=== PATIENT | male | born 1970 | race Caucasian/White ===

== ENCOUNTER 2018-09-11 14:09 | Emergency (ER) | payer OTHER ==
[2018-09-11 14:22] VITALS: BP 159/101
--- NOTE | 2018-09-11 14:58 | EDPHY ---
H & P Stated Complaint: Possible hydrogen flouride exposure at work. Initially burning eyes. 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 There were no known leaks or exposures. He was wearing protective equipment and goggles. However after leaving the room he and his coworkers noticed some slight burning sensation to the eyes and there eyes looked slightly red. This sensation resolved after about a minute. They did go ahead and irrigate there are eyes with the safety station. They wash their hands and any exposed areas with calcium gluconate soap and drank milk and took Tums. This all happened about 5 hr ago. He now presents to the emergency department with two of his coworkers. He just wanted to make sure he was okay. He is currently asymptomatic. He does state that he has had a mild cold over last few days and so his voice is slightly changed and scratchy. He is worried that this will mask any symptoms of pleural edema. The safety officers did take a hydrogen fluoride sniffer into the room that resulted as negative however the room has been being ventilated since the left. Severity: Minimal Modifying factors: Resolved REVIEW OF SYSTEMS: Constitutional: denies: chills, fever, recent illness, recent injury EENTM: denies: blurred vision, double vision, nose congestion Respiratory: denies: cough, shortness of breath Cardiac: denies: chest pain, irregular heart rate, lightheadedness, palpitations Gastrointestinal/Abdominal: denies: abdominal pain, diarrhea, nausea, vomiting, blood streaked stools Genitourinary: denies: dysuria, frequency, hematuria, pain Musculoskeletal: denies: joint pain, muscle pain Skin: denies: lesions, rash, jaundice, bruising Neurological: denies: headache, numbness, paresthesia, tingling, dizziness, weakness Hematologic/Lymphatic: denies: blood clots, easy bleeding, easy bruising Immunologic/allergic: denies: HIV/AIDS, transplant 10 systems reviewed and negative except as noted EXAM: GENERAL: Well-appearing, well-nourished and in no acute distress. HEAD: Atraumatic, normocephalic. EYES: Pupils equal round and reactive to light, extraocular movements intact, sclera anicteric, conjunctiva are normal. PH checked and is between 7 and 8. ENT: TMs normal, nares patent, oropharynx clear without exudates. Moist mucous membranes. NECK: Normal range of motion, supple without lymphadenopathy or JVD. LUNGS: Breath sounds clear to auscultation bilaterally and equal. No wheezes rales or rhonchi. HEART: Regular rate and rhythm without murmurs, rubs or gallops. ABDOMEN: Soft, nontender, normoactive bowel sounds. No guarding, no rebound. No masses appreciated. BACK: No CVA tenderness, no spinal tenderness, step-offs or deformities EXTREMITIES: Normal range of motion, no pitting or edema. No clubbing or cyanosis. NEUROLOGICAL: Cranial nerves II through XII grossly intact. Normal speech, normal gait. 5/5 strength, normal movement in all extremities, normal sensation , normal reflexes PSYCH: Normal mood, normal affect. SKIN: Warm, dry, normal turgor, no visible rashes or lesions. Source: Patient Exam Limitations: No limitations - Personal History Current Tetanus/Diphtheria Vaccine: Unsure - Medical/Surgical History Hx Asthma: No Hx Chronic Respiratory Disease: No Hx Diabetes: No Hx Cardiac Disease: No Hx Renal Disease: No Hx Cirrhosis: No Hx Alcoholism: No Hx HIV/AIDS: No Hx Splenectomy or Spleen Trauma: No Other PMH: denies - Family History Significant Family History: No pertinent family hx - Social History Smoking Status: Never smoked Alcohol Use: Sober Drug Use: None Constitutional: Initial Vital Signs Temperature (C) 37 C 09/11/18 14:20 Heart Rate 81 09/11/18 14:20 Respiratory Rate 16 09/11/18 14:20 Blood Pressure 159/101 H 09/11/18 14:20 O2 Sat (%) 96 09/11/18 14:20 O2 Delivery Mode Room Air Allergies/Adverse Reactions: No Known Allergies Allergy (Unverified 09/11/18 14:19) Home Medications: Medication Instructions Recorded NK [No Known Home Meds] 09/11/18 Medical Decision Making ED Course/Re-evaluation: 3:00 p.m. I spoke with the poison Control fellow. He states that these chemicals can be dangerously volatile however if the symptoms are gradually improving rather than worsening that they are safe and they would not expect them to worsen again or rebound. Patient feels reassured by this. He declines further workup or testing. Differential Diagnosis: Partial list of the Differential diagnosis considered include but were not limited to; chemical exposure, corneal burn, skin burn, inhalation injury and although unlikely based on the history and physical exam, I also considered pulmonary edema. I discussed these differential diagnoses and the plan with the patient as well as the usual and expected course. The patient understands that the diagnosis is provisional and that in medicine we are not always correct and that further workup is often warranted. Usual and customary warnings were given. All of the patient's questions were answered. The patient was instructed to return to the emergency department should the symptoms at all worsen or return, otherwise to followup with the physician as we discussed. Departure - Departure Disposition: Home, Routine, Self-Care Clinical Impression: Chemical exposure of eye Condition: Fair Instructions: [facility] (ED) Referrals: NONE *PRIMARY CARE P,. [Primary Care Provider] - As per Instructions
== END 2018-09-11 15:15 | disposition home or self-care (01) ==
DX: Z77.098 Contact with and (suspected) exposure to other hazardous, chiefly nonmedicinal, chemicals (principal)